=== PATIENT | female | born 1975 | race Caucasian/White ===

== ENCOUNTER → 2016-06-01 | Outpatient (CLI) | payer OTHER | LOC: FIMAGING 12:15 | PROVIDERS: ATTEND Obstetrics & Gynecology | DX: N63 Unspecified lump in breast (principal) ==

== ENCOUNTER → 2016-11-16 | Outpatient (CLI) | payer OTHER | LOC: BRMIMAGING 13:38 | DX: Z12.31 Encounter for screening mammogram for malignant neoplasm of breast (principal) | CPT/HCPCS: G0202 ==

== ENCOUNTER → 2016-11-26 | Outpatient (CLI) | payer OTHER | LOC: BRMIMAGING 09:21 | PROVIDERS: ATTEND Family Medicine | DX: R92.8 Other abnormal and inconclusive findings on diagnostic imaging of breast (principal) | CPT/HCPCS: 76641-PO ==

== ENCOUNTER → 2017-05-27 | Outpatient (CLI) | payer OTHER | LOC: BRMIMAGING 09:56 | PROVIDERS: ATTEND Obstetrics & Gynecology | DX: R92.8 Other abnormal and inconclusive findings on diagnostic imaging of breast (principal) | CPT/HCPCS: 76641-PO ==

== ENCOUNTER → 2018-02-10 | Outpatient (CLI) | payer OTHER | LOC: BRMIMAGING 09:14 | PROVIDERS: ATTEND Obstetrics & Gynecology | DX: N60.01 Solitary cyst of right breast (principal) | CPT/HCPCS: 76641-PO ==